=== PATIENT | male | born 1970 | race Caucasian/White ===

== ENCOUNTER 2017-06-27 23:49 | Inpatient (IN) | payer OTHER ==
[~2017-06-27] VITALS: Ht 182.9 cm; Wt 79.8 kg
[2017-06-28 03:11] LABS: Basophils # (auto) 0.1 uL; Eosinophils # (auto) 0 uL; Mean Corpuscular Volume 78.6 fL (80.0-100.0)
[2017-06-28 03:12] LABS: Basophils % (auto) 0.6 % (0.0-2.0); Eosinophils % (auto) 0.1 % (0.0-7.0); Hematocrit 45.4 % (41.0-53.0); Hemoglobin 14.8 g/dL (13.5-17.5); Lymphocytes # (auto) 0.9 uL; Lymphocytes % (auto) 3.6 % (10.0-50.0); Mean Corpuscular Hemoglobin 25.6 pg (28.0-32.0); Mean Corpuscular Hgb Conc. 32.6 g/dL (32.0-36.0); Monocytes # (auto) 1.9 uL; Monocytes % (auto) 7.3 % (0.0-12.0); Neutrophils # (auto) 22.7 uL; Neutrophils % (auto) 88.4 % (37.0-80.0); Platelet Count (auto) 233 10^3/uL (140-450); Red Blood Cells 5.78 10^6/uL (4.5-5.90); Red Cell Distribution Width 15.2 % (11.8-14.3); White Blood Cell 25.7 10^3/uL (4.4-10.8)
[2017-06-28 03:28] LABS: Albumin 3.9 g/dL (3.4-5.0); BUN/Creatinine Ratio 19.4; Calcium 9.1 mg/dL (8.5-10.1); Potassium 4.2 mmol/L (3.5-5.1)
[2017-06-28 03:30] LABS: Bilirubin, Total 0.5 mg/dL (0.2-1.0); Total Protein 8.8 g/dL (6.4-8.2)
[2017-06-28] MEDS ORDERED: SODIUM CHLORIDE 0.9% 1,000 ML IV ONE ×3 (04:30→09:00)
[2017-06-28] MEDS ORDERED: ACETAMINOPHEN 325 MG TAB PO ONE ×2 (05:06→05:15)
[2017-06-28] MEDS ORDERED: ONDANSETRON HCL 4 MG/2 ML VIAL IV ONE (05:15)
[2017-06-28] MEDS ORDERED: MORPHINE SULFATE 4 MG/ML SYR/VIAL IV ONE (05:15)
[2017-06-28] MEDS ORDERED: MORPHINE SULFATE INJECTION 1 ML ONE (05:16)
[2017-06-28] MEDS ORDERED: ONDANSETRON HCL 4 MG/2 ML VIAL ONE (05:16)
[2017-06-28] MEDS ORDERED: CLINDAMYCIN 900MG IV 50 ML IV ONE (05:45)
[2017-06-28] MEDS ORDERED: cefTRIAXone 1GM/10ml IVPUSH 10 ML IV ONE (05:45)
[2017-06-28 06:08] LABS: Urine Bacteria NONE SEEN /hpf (None Seen); Urine Blood 1+ /uL (Negative); Urine Mucus FEW (None Seen); Urine Specific Gravity 1.028 (1.001-1.035); Urine WBC 1 /hpf (0 - 3)
[2017-06-28 06:22] LABS: Alcohol, Urine < 3.0 mg/dL (0-5); Amphetamine Screen, Urine POSITIVE (NEGATIVE); Barbiturate Scree,Urine NEGATIVE (NEGATIVE); Benzodiazephine Screen, Urine NEGATIVE (NEGATIVE); Cannabinoid Screen, Urine NEGATIVE (NEGATIVE); Cocaine Screen, Urine NEGATIVE (NEGATIVE); Opiate Scree,Urine POSITIVE (NEGATIVE); Phencyclidine Screen, Urine NEGATIVE (NEGATIVE)
[2017-06-28] MEDS ORDERED: NITROGLYCERIN 0.4 MG SL TAB SL PRN (09:00)
[2017-06-28] MEDS ORDERED: MORPHINE SULFATE 4 MG/ML SYR/VIAL IV PRN (09:00)
[2017-06-28] MEDS ORDERED: DOCUSATE SOD 100 MG CAP PO PRN (09:00)
[2017-06-28] MEDS ORDERED: ACETAMINOPHEN 325 MG TAB PO PRN (09:00)
[2017-06-28] MEDS ORDERED: TEMAZEPAM 15 MG CAP PO PRN (09:00)
[2017-06-28] MEDS ORDERED: VANCOMYCIN PER PHARMACY 0 MG IV SCH (09:00)
[2017-06-28] MEDS: SODIUM CHLORIDE 0.9% 1,000 ML IV SCH ×2 (09:08→17:21)
[2017-06-28] MEDS: VANCOMYCIN 1,250 MG in D5W 5% 250 ML IV SCH ×2 (10:14→22:05)
[2017-06-28] MEDS: FAMOTIDINE 20 MG TAB PO SCH ×2 (10:14→22:00)
[2017-06-28] MEDS: MULTIPLE VITAMIN TAB PO SCH (10:14)
[2017-06-28] MEDS: MORPHINE SULFATE 4 MG/ML SYR/VIAL IV PRN (10:14)
[2017-06-28] MEDS: ONDANSETRON HCL 4 MG/2 ML VIAL IV PRN (10:14)
[2017-06-28] MEDS: ACETAMINOPHEN 325 MG TAB PO PRN (22:04)
[2017-06-28] MEDS: HYDROcodone-ACET 5/325MG TAB PO PRN (22:04)
[2017-06-29] MEDS: SODIUM CHLORIDE 0.9% 1,000 ML IV SCH ×3 (01:35→18:13)
[2017-06-29 05:02] LABS: Basophils # (auto) 0 uL; Basophils % (auto) 0.2 % (0.0-2.0); Lymphocytes # (auto) 1.4 uL; Monocytes # (auto) 1.6 uL
[2017-06-29 05:04] LABS: Eosinophils # (auto) 0.1 uL; Eosinophils % (auto) 0.4 % (0.0-7.0); Hematocrit 43.1 % (41.0-53.0); Hemoglobin 13.6 g/dL (13.5-17.5); Lymphocytes % (auto) 8.4 % (10.0-50.0); Mean Corpuscular Hemoglobin 25.8 pg (28.0-32.0); Mean Corpuscular Hgb Conc. 31.6 g/dL (32.0-36.0); Mean Corpuscular Volume 81.7 fL (80.0-100.0); Monocytes % (auto) 10.2 % (0.0-12.0); Neutrophils % (auto) 80.8 % (37.0-80.0); Nucleated Red Blood Cells % 0.1 %; Platelet Count (auto) 174 10^3/uL (140-450); Red Blood Cells 5.27 10^6/uL (4.5-5.90); Red Cell Distribution Width 15.7 % (11.8-14.3)
[2017-06-29 05:26] LABS: Albumin 2.6 g/dL (3.4-5.0); BUN/Creatinine Ratio 13.3; Bilirubin, Total 0.2 mg/dL (0.2-1.0); Calcium 8.2 mg/dL (8.5-10.1); Potassium 4.4 mmol/L (3.5-5.1); Total Protein 7.1 g/dL (6.4-8.2)
[2017-06-29] MEDS: MORPHINE SULFATE 4 MG/ML SYR/VIAL IV PRN ×2 (05:51→23:13)
[2017-06-29] MEDS: cefTRIAXone 1GM/10ml IVPUSH 10 ML IV SCH (09:00)
[2017-06-29] MEDS: MULTIPLE VITAMIN TAB PO SCH (10:00)
[2017-06-29] MEDS: VANCOMYCIN 1,250 MG in D5W 5% 250 ML IV SCH ×2 (10:00→22:19)
[2017-06-29] MEDS: FAMOTIDINE 20 MG TAB PO SCH ×2 (10:00→22:19)
[2017-06-29] MEDS: ONDANSETRON HCL 4 MG/2 ML VIAL IV PRN ×2 (11:21→23:13)
[2017-06-29] MEDS: ACETAMINOPHEN 325 MG TAB PO PRN (11:21)
[2017-06-29] MEDS ORDERED: ACETAMINOPHEN 325 MG TAB PO PRN (11:30)
[2017-06-29] MEDS: DOXYCYCLINE 100MG/250ML 250 ML IV SCH (17:21)
[2017-06-29] MEDS ORDERED: MORPHINE SULFATE INJECTION 1 ML ONE (23:01)
[2017-06-30] MEDS: SODIUM CHLORIDE 0.9% 1,000 ML IV SCH ×3 (02:49→19:45)
[2017-06-30] MEDS: DOXYCYCLINE 100MG/250ML 250 ML IV SCH ×2 (04:00→16:00)
[2017-06-30] MEDS: VANCOMYCIN 1,250 MG in D5W 5% 250 ML IV SCH ×2 (06:15→15:47)
[2017-06-30 07:38] LABS: Basophils # (auto) 0 uL; Basophils % (auto) 0.3 % (0.0-2.0); Eosinophils # (auto) 0.1 uL; Hemoglobin 12.8 g/dL (13.5-17.5); White Blood Cell 11.2 10^3/uL (4.4-10.8)
[2017-06-30 07:40] LABS: Hematocrit 40.2 % (41.0-53.0); Mean Corpuscular Hemoglobin 26.1 pg (28.0-32.0); Mean Corpuscular Hgb Conc. 31.8 g/dL (32.0-36.0); Monocytes # (auto) 0.9 uL; Neutrophils # (auto) 9.2 uL; Neutrophils % (auto) 81.7 % (37.0-80.0); Platelet Count (auto) 154 10^3/uL (140-450); Red Cell Distribution Width 15.9 % (11.8-14.3)
[2017-06-30 07:42] LABS: Albumin 2.2 g/dL (3.4-5.0); BUN/Creatinine Ratio 12.5; Calcium 7.9 mg/dL (8.5-10.1)
[2017-06-30 07:45] LABS: Bilirubin, Total 0.2 mg/dL (0.2-1.0); Total Protein 6.8 g/dL (6.4-8.2)
[2017-06-30] MEDS: cefTRIAXone 1GM/10ml IVPUSH 10 ML IV SCH (09:13)
[2017-06-30] MEDS: MULTIPLE VITAMIN TAB PO SCH (10:00)
[2017-06-30] MEDS: FAMOTIDINE 20 MG TAB PO SCH (10:00)
[2017-06-30] MEDS: HYDROcodone-ACET 5/325MG TAB PO PRN (14:01)
[2017-07-01] MEDS: FAMOTIDINE 20 MG TAB PO SCH (00:19)
[2017-07-01] MEDS: VANCOMYCIN 1,250 MG in D5W 5% 250 ML IV SCH ×2 (00:19→08:03)
[2017-07-01] MEDS ORDERED: MORPHINE SULFATE INJECTION 1 ML ONE ×2 (02:44→03:55)
[2017-07-01] MEDS: MORPHINE SULFATE 4 MG/ML SYR/VIAL IV PRN ×2 (02:51→04:02)
[2017-07-01] MEDS: ONDANSETRON HCL 4 MG/2 ML VIAL IV PRN ×2 (02:51→04:02)
[2017-07-01] MEDS: SODIUM CHLORIDE 0.9% 1,000 ML IV SCH (03:33)
[2017-07-01] MEDS: DOXYCYCLINE 100MG/250ML 250 ML IV SCH (04:11)
[2017-07-01 09:51] VITALS: BP 139/83
[2017-07-01] MEDS: cefTRIAXone 1GM/10ml IVPUSH 10 ML IV SCH (10:17)
== END 2017-06-30 23:25 | disposition home or self-care (01) | DRG 872 ==
LOC: ER 23:49 → EDBD 23:49 → EDSEX 23:49 → OVERFLOW 23:50
PROVIDERS: ADMIT Internal Medicine; ATTEND Internal Medicine
DX: A41.9 Sepsis, unspecified organism (principal); E87.1 Hypo-osmolality and hyponatremia; L03.115 Cellulitis of right lower limb; D50.9 Iron deficiency anemia, unspecified; E86.0 Dehydration; N18.2 Chronic kidney disease, stage 2 (mild); Z88.2 Allergy status to sulfonamides; Z88.8 Allergy status to other drugs, medicaments and biological substances
CPT/HCPCS: 36415; 51702; 80053; 80202; 80307; 81001; 83605; 85025; 87040; 93306; 93971; 96361; 96365; 96366; 96375; G0378; J2270; J2405; J3490; J7060